=== PATIENT | male | born 1995 | race American Indian/Alaskan Native ===

== ENCOUNTER 2018-09-12 19:56 | Emergency (ER) | payer OTHER ==
[2018-09-12 20:36] VITALS: BP 153/89
--- NOTE | 2018-09-12 20:59 | Emergency Department Report ---
Blank Doc - Documentation Documentation: 23 y o male presents to ED cc of left knee pain today while playing basket ball xr done acc eval
--- NOTE | 2018-09-12 21:34 | XRay Report ---
XR KNEE 4+V LT CLINICAL INDICATION: Male, 23 years of age. knee injury, left COMPARISON: None available. FINDINGS: 4 views of the left knee obtained. Patella located within the trochlear groove. Mild narrow ing of the medial joint space compartment. Fragmented inferior patellar enthesophyte versus remote av ulsive injury. This is well corticated compatible chronic finding. No acute fracture. Small suprapate llar effusion. IMPRESSION: 1. No acute fracture. Small suprapatellar effusion. 2. Fragmented well corticated inferior patellar enthesophyte versus remote avulsive injury. This is a chronic finding. This document is electronically signed by Iliana Esparza DO., September 12 2018 09:32:11 PM ET
--- NOTE | 2018-09-12 22:28 | Emergency Department Report ---
ED Lower Extremity HPI - General Chief Complaint: Extremity Injury, Lower Stated Complaint: SWOLLEN LEFT LEG Time Seen by Provider: 09/12/18 20:55 Source: patient Mode of arrival: Ambulatory Limitations: No Limitations - History of Present Illness Initial Comments: 23-year-old -[place] male presents to the emergency room while playing basketball today he injured his left knee. Patient reports that when he planted his left foot and leg inverted. Patient reports pain is limited only with walking and bending. Patient has no other concerns. MD Complaint: knee injury (left) -: This afternoon Injury: Knee: Left Type of Injury: inversion Place: street/outdoors Severity: severe Improves With: rest - Related Data Previous Rx's Medication Instructions Recorded Last Taken Type Methocarbamol [Robaxin-750] 750 mg PO Q6HR PRN #20 tablet 05/09/18 Unknown Rx Ciprofloxacin HCl [Cipro] 500 mg PO Q12H 10 Days #20 tablet 05/10/18 Unknown Rx Clindamycin [Clindamycin CAP] 300 mg PO Q8H 10 Days #30 cap 05/10/18 Unknown Rx Ibuprofen [Motrin] 800 mg PO Q8HR PRN #12 tablet 05/10/18 Unknown Rx Ondansetron [Zofran Odt] 4 mg PO Q6H PRN #20 tab.rapdis 05/10/18 Unknown Rx Naproxen [Naprosyn TAB] 500 mg PO BID #20 tablet 09/12/18 Unknown Rx Allergies Allergy/AdvReac Type Severity Reaction Status Date / Time codeine Allergy Hives Verified 05/10/18 07:01 Penicillins Allergy Swelling Verified 05/09/18 09:48 ED Review of Systems ROS: Stated complaint: SWOLLEN LEFT LEG Other details as noted in HPI ED Past Medical Hx - Past Medical History Previous Medical History?: Yes Hx Hypertension: Yes - Surgical History Past Surgical History?: No - Social History Smoking Status: Never Smoker Substance Use Type: None - Medications Home Medications: Home Medications Medication Instructions Recorded Confirmed Last Taken Type Methocarbamol [Robaxin-750] 750 mg PO Q6HR PRN #20 tablet 05/09/18 Unknown Rx Ciprofloxacin HCl [Cipro] 500 mg PO Q12H 10 Days #20 tablet 05/10/18 Unknown Rx Clindamycin [Clindamycin CAP] 300 mg PO Q8H 10 Days #30 cap 05/10/18 Unknown Rx Ibuprofen [Motrin] 800 mg PO Q8HR PRN #12 tablet 05/10/18 Unknown Rx Ondansetron [Zofran Odt] 4 mg PO Q6H PRN #20 tab.rapdis 05/10/18 Unknown Rx Naproxen [Naprosyn TAB] 500 mg PO BID #20 tablet 09/12/18 Unknown Rx ED Physical Exam - General Limitations: No Limitations General appearance: alert, in no apparent distress - Head Head exam: Present: atraumatic, normocephalic - Eye Eye exam: Present: normal appearance - ENT ENT exam: Present: mucous membranes moist - Neck Neck exam: Present: normal inspection - Expanded Lower Extremity Exam Left Knee exam: Present: full ROM, swelling, full knee extension. Absent: tenderness, abrasion, laceration, ecchymosis, deformity, crepidus, posterior draw sign, pain/laxity with valgus, pain/laxity with varus Lower Leg exam: Present: normal inspection, full ROM. Absent: tenderness, swelling, abrasion Ankle exam: Present: normal inspection, full ROM - Back Exam Back exam: Present: normal inspection, full ROM - Neurological Exam Neurological exam: Present: alert, oriented X3 - Psychiatric Psychiatric exam: Present: normal affect, normal mood - Skin Skin exam: Present: warm, dry, intact, normal color. Absent: rash ED Course Vital Signs 09/12/18 09/12/18 20:21 20:57 Temperature 99.2 F 99.2 F Pulse Rate 91 H 88 Respiratory 18 18 Rate Blood Pressure 153/89 153/89 O2 Sat by Pulse 97 97 Oximetry ED Lower Extremity MDM - Radiology Data Radiology results: report reviewed Patient: RAJEEV DAWKINS MR#: [id number] : 1995 Acct:[id number] Age/Sex: 23 / M ADM Date: 09/12/18 Loc: ED Attending Dr: Ordering Physician: ROSA MORA Date of Service: 09/12/18 Procedure(s): XR knee 4+V LT Accession Number(s): [id number] cc: ROSA MORA Fluoro Time In Minutes: XR KNEE 4+V LT CLINICAL INDICATION: Male, 23 years of age. knee injury, left COMPARISON: None available. FINDINGS: 4 views of the left knee obtained. Patella located within the trochlear groove. Mild narrowing of the medial joint space compartment. Fragmented inferior patellar enthesophyte versus remote avulsive injury. This is well corticated compatible chronic finding. No acute fracture. Small suprapatellar effusion. IMPRESSION: 1. No acute fracture. Small suprapatellar effusion. 2. Fragmented well corticated inferior patellar enthesophyte versus remote avulsive injury. This is a chronic finding. This document is electronically signed by Iliana Esparza DO., September 12 2018 09:32:11 PM ET Transcribed By: VISHAL Dictated By: CAROL ESPARZA MD Electronically Authenticated By: CAROL ESPARZA MD Signed Date/Time: 09/12/182133 DD/ 28 TD/TT: 09/12/182128 - Medical Decision Making Patient has been evaluated by this provider in fast track. X-ray of left knee shows a small suprapatellar effusion. Discussed patient to continue with crutches and follow-up with an orthopedic provider I have listed one below for his convenience. Patient verbalized understanding Critical care attestation.: If time is entered above; I have spent that time in minutes in the direct care of this critically ill patient, excluding procedure time. ED Disposition Clinical Impression: Effusion, left knee Disposition: DC-01 TO HOME OR SELFCARE Is pt being admited?: No Does the pt Need Aspirin: No Condition: Stable Additional Instructions: Take pain medication as needed. Follow-up with an orthopedic provider I have listed one below for your convenience. Prescriptions: Naproxen [Naprosyn TAB] 500 mg PO BID #20 tablet Referrals: JOSÉ LUIS ARAUJO MD [Primary Care Provider] - 3-5 Days TATO BONILLA MD [Staff Physician] - 3-5 Days
== END 2018-09-12 22:48 | disposition home or self-care (01) ==
LOC: ED 19:56
DX: M25.462 Effusion, left knee (principal); I10 Essential (primary) hypertension; Z88.0 Allergy status to penicillin; Z88.5 Allergy status to narcotic agent
CPT/HCPCS: 99283

== ENCOUNTER 2019-05-08 19:46 | Emergency (ER) | payer SELFPAY ==
--- NOTE | 2019-05-08 20:46 | Event Note ---
ED Screening Note ED Screening Note: abscess to gluteal cleft 2-3 days ago never had before no drainage no fever no PMHx allergy: penicillin, tylenol with codeine This initial assessment/diagnostic orders/clinical plan/treatment(s) is/are subject to change based on patients health status, clinical progression and re- assessment by fellow clinical providers in the ED. Further treatment and workup at subsequent clinical providers discretion. Patient/guardian urged not to elope from the ED as their condition may be serious if not clinically assessed and managed.
--- NOTE | 2019-05-08 23:15 | Emergency Department Report ---
- General Chief complaint: Skin/Abscess/Foreign Body Stated complaint: RISEN ON BUTTOCKS Time Seen by Provider: 05/08/19 20:45 Source: patient Mode of arrival: Ambulatory Limitations: No Limitations - History of Present Illness Initial comments: pt is a 24 y/o aam who presents for right buttock abscess 2 days with rectal pain , there is no fever no chills, no n/v , pt is having normal bowel movements. There is no abdominal pain or distention. MD complaint: abscess/boil Onset/Timin -: days(s) Tetanus Up to Date: yes Location: buttocks Severity: moderate Severity scale (0 -10): 5 Quality: aching, other (itching ) Consistency: constant Improves with: none Worsens with: palpation, movement, other (sitting ) Context: none Associated symptoms: rigors, itching, nausea, vomiting Treatments Prior to Arrival: none - Related Data Previous Rx's Medication Instructions Recorded Last Taken Type Methocarbamol [Robaxin-750] 750 mg PO Q6HR PRN #20 tablet 05/09/18 Unknown Rx Ciprofloxacin HCl [Cipro] 500 mg PO Q12H 10 Days #20 tablet 05/10/18 Unknown Rx Clindamycin [Clindamycin CAP] 300 mg PO Q8H 10 Days #30 cap 05/10/18 Unknown Rx Ibuprofen [Motrin] 800 mg PO Q8HR PRN #12 tablet 05/10/18 Unknown Rx Ondansetron [Zofran Odt] 4 mg PO Q6H PRN #20 tab.rapdis 05/10/18 Unknown Rx Naproxen [Naprosyn TAB] 500 mg PO BID #20 tablet 09/12/18 Unknown Rx Clindamycin [Clindamycin CAP] 300 mg PO Q6H 10 Days #40 capsule 05/09/19 Unknown Rx traMADoL [Ultram] 50 mg PO Q6HR PRN #12 tablet 05/09/19 Unknown Rx Allergies Allergy/AdvReac Type Severity Reaction Status Date / Time codeine Allergy Hives Verified 05/10/18 07:01 Penicillins Allergy Swelling Verified 05/09/18 09:48 Abscess Boil HPI - HPI Chief Complaint: Skin/Abscess/Foreign Body Stated Complaint: RISEN ON BUTTOCKS Time Seen by Provider: 05/08/19 20:45 Home Medications: Previous Rx's Medication Instructions Recorded Last Taken Type Methocarbamol [Robaxin-750] 750 mg PO Q6HR PRN #20 tablet 05/09/18 Unknown Rx Ciprofloxacin HCl [Cipro] 500 mg PO Q12H 10 Days #20 tablet 05/10/18 Unknown Rx Clindamycin [Clindamycin CAP] 300 mg PO Q8H 10 Days #30 cap 05/10/18 Unknown Rx Ibuprofen [Motrin] 800 mg PO Q8HR PRN #12 tablet 05/10/18 Unknown Rx Ondansetron [Zofran Odt] 4 mg PO Q6H PRN #20 tab.rapdis 05/10/18 Unknown Rx Naproxen [Naprosyn TAB] 500 mg PO BID #20 tablet 09/12/18 Unknown Rx Clindamycin [Clindamycin CAP] 300 mg PO Q6H 10 Days #40 capsule 05/09/19 Unknown Rx traMADoL [Ultram] 50 mg PO Q6HR PRN #12 tablet 05/09/19 Unknown Rx Allergies/Adverse Reactions: Allergies Allergy/AdvReac Type Severity Reaction Status Date / Time codeine Allergy Hives Verified 05/10/18 07:01 Penicillins Allergy Swelling Verified 05/09/18 09:48 ED Review of Systems ROS: Stated complaint: RISEN ON BUTTOCKS Other details as noted in HPI Constitutional: denies: chills, fever Eyes: denies: eye pain, eye discharge, vision change ENT: denies: ear pain, throat pain Respiratory: denies: cough, shortness of breath, wheezing Cardiovascular: denies: chest pain, palpitations Endocrine: no symptoms reported Gastrointestinal: denies: abdominal pain, nausea, vomiting, diarrhea Genitourinary: denies: urgency, dysuria Musculoskeletal: denies: back pain, joint swelling, arthralgia Skin: other (right buttocks abscess ). denies: rash, lesions Neurological: denies: headache, weakness, paresthesias Psychiatric: denies: anxiety, depression Hematological/Lymphatic: denies: easy bleeding, easy bruising ED Past Medical Hx - Past Medical History Previous Medical History?: Yes Hx Hypertension: Yes Additional medical history: Obesity - Surgical History Past Surgical History?: No - Social History Smoking Status: Current Every Day Smoker Substance Use Type: Alcohol, Marijuana - Medications Home Medications: Home Medications Medication Instructions Recorded Confirmed Last Taken Type Methocarbamol [Robaxin-750] 750 mg PO Q6HR PRN #20 tablet 05/09/18 Unknown Rx Ciprofloxacin HCl [Cipro] 500 mg PO Q12H 10 Days #20 tablet 05/10/18 Unknown Rx Clindamycin [Clindamycin CAP] 300 mg PO Q8H 10 Days #30 cap 05/10/18 Unknown Rx Ibuprofen [Motrin] 800 mg PO Q8HR PRN #12 tablet 05/10/18 Unknown Rx Ondansetron [Zofran Odt] 4 mg PO Q6H PRN #20 tab.rapdis 05/10/18 Unknown Rx Naproxen [Naprosyn TAB] 500 mg PO BID #20 tablet 09/12/18 Unknown Rx Clindamycin [Clindamycin CAP] 300 mg PO Q6H 10 Days #40 capsule 05/09/19 Unknown Rx traMADoL [Ultram] 50 mg PO Q6HR PRN #12 tablet 05/09/19 Unknown Rx ED Physical Exam - General Limitations: No Limitations General appearance: alert, in no apparent distress - Head Head exam: Present: atraumatic, normocephalic - Eye Eye exam: Present: normal appearance, PERRL, EOMI Pupils: Present: normal accommodation - ENT ENT exam: Present: mucous membranes moist - Neck Neck exam: Present: normal inspection - Respiratory Respiratory exam: Present: normal lung sounds bilaterally. Absent: respiratory distress - Cardiovascular Cardiovascular Exam: Present: regular rate, normal rhythm. Absent: systolic murmur, diastolic murmur, rubs, gallop - GI/Abdominal GI/Abdominal exam: Present: soft, normal bowel sounds. Absent: distended, tenderness, guarding, rebound, rigid, bruit, hernia - Rectal Rectal exam: Present: normal inspection, normal rectal tone, other (right buttock tenderness non-flucuant, no erythema no drainage , warm to touch ). Absent: black stool, bloody stool, fecal impaction, hemorrhoids, mass, tenderness, prostate tenderness - Extremities Exam Extremities exam: Present: normal inspection - Back Exam Back exam: Present: normal inspection, full ROM. Absent: tenderness, CVA tenderness (R), rash noted - Neurological Exam Neurological exam: Present: alert, oriented X3, CN II-XII intact, normal gait - Psychiatric Psychiatric exam: Present: normal affect, normal mood - Skin Skin exam: Present: warm, dry, intact, normal color, other (abscess as above ). Absent: rash ED Course Vital Signs 05/08/19 05/08/19 19:53 20:45 Temperature 98.7 F 98.7 F Pulse Rate 99 H 102 H Respiratory 18 18 Rate Blood Pressure 143/84 143/84 O2 Sat by Pulse 97 97 Oximetry ED Medical Decision Making - Lab Data Result diagrams: 05/08/19 23:11 05/08/19 23:11 Labs 05/08/19 05/08/19 05/08/19 23:11 23:11 23:11 WBC 8.5 RBC 5.31 H Hgb 14.6 Hct 44.1 MCV 83 L MCH 28 MCHC 33 RDW 14.8 Plt Count 146 Sodium 142 Potassium 3.8 Chloride 103.4 Carbon Dioxide 23 Anion Gap 19 BUN 8 L Creatinine 1.0 Estimated GFR > 60 BUN/Creatinine Ratio 8 Glucose 90 Lactic Acid 0.80 Calcium 9.4 - Radiology Data Radiology results: report reviewed, [place] [address] Cat Scan Report Signed Patient: RAJEEV DAWKINS MR#: [id number] : 1995 Acct:[id number] Age/Sex: 24 / M ADM Date: 05/08/19 Loc: ED Attending Dr: Ordering Physician: GERALDINE BENAVIDES NP Date of Service: 05/08/19 Procedure(s): CT abdomen pelvis wo con Accession Number(s): [id number] cc: GERALDINE BENAVIDES NP CT ABDOMEN AND PELVIS WITHOUT CONTRAST INDICATION: Rectal pain. Evaluate for rectal abscess TECHNICAL: Multiple axial CT images of the abdomen and pelvis were acquired without intravenous contrast. Sagittal and coronal reformats were obtained. All CTs at this facility utilize dose reduction techniques including automated exposure control, iterative reconstruction and weight based dosing when appropriate to reduce patient radiation dose to as low as reasonable achievable. COMPARISON: CT of the abdomen and pelvis, 05/10/2018 FINDINGS: Limited imaging of the bilateral lung bases demonstrates no evidence of acute abnormality. Abdomen: The liver, gallbladder, spleen, pancreas, bilateral adrenal glands and bilateral kidneys show no evidence of acute abnormality. There is no evidence of bowel obstruction or free fluid. The appendix is visualized and appears normal. Pelvis: No free fluid is seen within the pelvis. The urinary bladder appears grossly normal. Bones and Soft Tissues: Evaluation of bony structures demonstrate no evidence of destructive bony lesion. Evaluation of soft tissue structures demonstrates moderate inflammatory changes of the pe rirectal soft tissues without focal enhancing fluid collection to suggest abscess. There are a few prominent but not pathologically enlarged bilateral inguinal lymph nodes. IMPRESSION: 1. Moderate inflammatory changes of the perirectal soft tissues without evidence for rectal abscess. Signer Name: Millicent Dudley MD Signed: 05/08/2019 11:41 PM Workstation Name: [id number] Transcribed By: EB Dictated By: Millicent Dudley MD Electronically Authenticated By: Millicent Dudley MD Signed Date/Time: 05/08/192340 DD/ 36 TD/TT: - Medical Decision Making ct abd pelvis: no perirectal abscess, pt decline I&D at this time, all labs are normal , plan: clindmaycin, ultram , follow up with pcp, and or general surgery if symptoms persist or worsen. pt verbalized agreement and understanding of same. Critical care attestation.: If time is entered above; I have spent that time in minutes in the direct care of this critically ill patient, excluding procedure time. ED Disposition Clinical Impression: Cellulitis of buttock Disposition: DC-01 TO HOME OR SELFCARE Is pt being admited?: No Does the pt Need Aspirin: No Condition: Stable Instructions: Cellulitis (ED) Prescriptions: Clindamycin [Clindamycin CAP] 300 mg PO Q6H 10 Days #40 capsule traMADoL [Ultram] 50 mg PO Q6HR PRN #12 tablet PRN Reason: Pain Referrals: BUBBA VANN DO [Staff Physician] - 3-5 Days [facility] [Outside] - 3-5 Days Forms: Work/School Release Form(ED) Time of Disposition: 00:25
[2019-05-08] MEDS ORDERED: LIDOCAINE-MPF (1%) 10 MG/1 ML VIAL 5 ML INFILTRATI ONE (23:17)
[2019-05-08] MEDS ORDERED: traMADol 50 MG TAB PO ONE (23:17)
[2019-05-08 23:41] LABS: Hematocrit 44.1 % (35.5-45.6); Hemoglobin 14.6 gm/dl (11.8-15.2); Mean Corpuscular HGB Conc 33 % (32-34); Mean Corpuscular Volume 83 fl (84-94); Platelet Count 146 K/mm3 (140-440); Red Blood Count 5.31 M/mm3 (3.65-5.03); Red Cell Distribution Width 14.8 % (13.2-15.2)
--- NOTE | 2019-05-08 23:46 | Cat Scan Report ---
CT ABDOMEN AND PELVIS WITHOUT CONTRAST INDICATION: Rectal pain. Evaluate for rectal abscess TECHNICAL: Multiple axial CT images of the abdomen and pelvis were acquired without intravenous contr ast. Sagittal and coronal reformats were obtained. All CTs at this facility utilize dose reduction techniques including automated exposure control, iterative reconstruction and weight based dosing whe n appropriate to reduce patient radiation dose to as low as reasonable achievable. COMPARISON: CT of the abdomen and pelvis, 05/10/2018 FINDINGS: Limited imaging of the bilateral lung bases demonstrates no evidence of acute abnormality. Abdomen: The liver, gallbladder, spleen, pancreas, bilateral adrenal glands and bilateral kidneys ludmila w no evidence of acute abnormality. There is no evidence of bowel obstruction or free fluid. The appe ndix is visualized and appears normal. Pelvis: No free fluid is seen within the pelvis. The urinary bladder appears grossly normal. Bones and Soft Tissues: Evaluation of bony structures demonstrate no evidence of destructive bony le zelda. Evaluation of soft tissue structures demonstrates moderate inflammatory changes of the perirect al soft tissues without focal enhancing fluid collection to suggest abscess. There are a few prominen t but not pathologically enlarged bilateral inguinal lymph nodes. IMPRESSION: 1. Moderate inflammatory changes of the perirectal soft tissues without evidence for rectal abscess. Signer Name: Millicent Dudley MD Signed: 05/08/2019 11:41 PM Workstation Name: [id number]
[2019-05-08 23:56] LABS: BUN/Creatinine Ratio 8; Blood Urea Nitrogen 8 mg/dL (9-20); Calcium 9.4 mg/dL (8.4-10.2); Hemolysis Index 3
[2019-05-09] MEDS ORDERED: CLINDAMYCIN 300 MG CAP PO ONE (00:19)
[2019-05-09] MEDS ORDERED: LIDOCAINE-MPF (1%) 10 MG/1 ML VIAL 5 ML ONE (00:52)
[2019-05-09 02:09] VITALS: BP 141/82
== END 2019-05-09 01:00 | disposition home or self-care (01) ==
LOC: ED 19:46
DX: L02.31 Cutaneous abscess of buttock (principal); F17.200 Nicotine dependence, unspecified, uncomplicated; F12.10 Cannabis abuse, uncomplicated; I10 Essential (primary) hypertension
CPT/HCPCS: 36415; 74176; 80048; 82140; 85027; 86140